=== PATIENT | female | born 1970 | race Caucasian/White ===

== ENCOUNTER 2017-11-23 03:51 | Emergency (ER) | payer BC ==
[2017-11-23] MEDS ORDERED: ALBUTEROL SULFATE 2.5 MG/0.5 ML VIAL.NEB IH ONE ×2 (03:57→03:58)
[2017-11-23] MEDS ORDERED: METHYLPREDNISOLONE SOD SUCC/PF 125 MG/2 ML VIAL IM ONE (03:58)
[2017-11-23] MEDS ORDERED: diphenhydrAMINE HCL 50 MG/ML VIAL IV ONE (03:58)
[2017-11-23] MEDS ORDERED: METHYLPREDNISOLONE SOD SUCC/PF 125 MG/2 ML VIAL ONE (04:06)
[2017-11-23] MEDS ORDERED: METHYLPREDNISOLONE SOD SUCC/PF 125 MG/2 ML VIAL IV ONE (04:06)
[2017-11-23] MEDS ORDERED: diphenhydrAMINE HCL 50 MG/ML VIAL ONE (04:06)
--- NOTE | 2017-11-23 04:08 | ERNOTE ---
Dizziness ER Record Presenting Symptoms: weakness, near-fainting Time Seen by Provider: 11/23/17 03:51 Source: patient Exam Limitations: no limitations Allergies/Adverse Reactions: Allergies Allergy/AdvReac Type Severity Reaction Status Date / Time No Known Allergies Allergy Unverified 11/23/17 04:04 Home Medications: HOME MEDICATIONS Albuterol Sulfate [Proair Hfa] 1 - 2 puff IH Q4H PRN 11/23/17 [Last Taken Unknown] Mometasone/Formoterol [Dulera 100 Mcg/5 Mcg Inhaler] 2 puff IH BID 11/23/17 [ Last Taken Unknown] - History of Present Illness Narrative: Pt states she had a headache at work, she took a couple 81 mg ASA. a few minutes later she began to feel faint, she went into the bathroom then began to feel nauseous and vomited. She went into the nurses station and was very lethargic / near -syncopal. Timing and Duration: sudden onset Severity: max: moderate Severity: currently: moderate Associated Symptoms: Present: vomiting Sense of movement: Present: vague Fainted/near fainted while:: Present: standing Decreased ability to stand/walk:: Present: weak, off balance Review of Systems - Review of Systems Constitutional: Absent: recent illness, fever, chills EYE: Present: other - tunnel vision for a short time ENT: Absent: nose congestion, nasal drainage Respiratory: Present: shortness of breath, wheezing Cardiology: Present: chest pain - pressure, palpitations Gastrointestinal/Abdominal: Present: nausea, vomiting. Absent: diarrhea, abdominal pain Genitourinary: Absent: frequency, pain, dysuria Musculoskeletal: Absent: muscle pain, joint pain, joint swelling Skin: Absent: rash Neurological: Present: headache - top of head and behind left eye Endocrine: Absent: excessive sweating, flushing Hematologic/Lymphatic: Present: no symptoms reported Psych: Present: no symptoms reported - Patient's Past Medical History Patient History - Cardiac/Respiratory: COPD Physical Exam - Physical Exam General Appearance: Present: wd/wn, alert, mild distress Head Exam: Present: normal inspection, no evidence of injury Ears, Nose, Throat: Present: normal ENT inspection Neck: Present: normal inspection, nontender Respiratory: Present: no respiratory distress, no accessory muscle use, wheezing - occasional expiratory Cardiovascular/Chest: Present: regular rate, rhythm, no murmur, normal peripheral pulses Gastrointestinal/Abdominal: Present: normal bowel sounds, nontender, nondistended, soft Back Exam: Present: normal inspection, normal range of motion, no vertebral tenderness Extremity Exam: Present: normal inspection, normal range of motion, no edema Neurological Exam: Present: alert, oriented, no motor/sensory deficits Skin Exam: Present: normal color, warm/dry Lymphatic Exam: Present: no adenopathy ED Progress - Results and Orders Patient's Lab Results:: I have reviewed the patient's lab results. Results and Orders: Laboratory Tests 11/23/17 11/23/17 11/23/17 03:59 03:59 04:35 WBC 10.2 Hgb 13.1 Hct 38.0 Plt Count 274 Neutrophils % 77.1 H Sodium 142 Potassium 3.7 Chloride 108 H Carbon Dioxide 24.2 Anion Gap 13.5 BUN 8 Creatinine 0.88 Est GFR (Non-Af Amer) 74 Random Glucose 114 H Calcium 8.6 Total Bilirubin 0.2 AST 14 ALT 24 Alkaline Phosphatase 77 Troponin I Less than 0.017 Total Protein 7.2 Albumin 3.7 Urine Color Pale yellow Urine Appearance Clear Urine pH 6.0 Ur Specific [place] <=1.005 Urine Protein Negative Urine Glucose (UA) Negative Urine Ketones Negative Urine Blood Negative Urine Nitrate Negative Urine Bilirubin Negative Urine Urobilinogen Normal Ur Leukocyte Esterase Negative Urine RBC 0-5 Urine WBC 0-5 Ur Epithelial Cells 0-5 Urine Bacteria None seen Urine Culture Comments No culture indicated Urine Opiates Screen Barbiturate Screen Ur Phencyclidine Scrn Urine Amphetamine U Benzodiazepines Scrn Urine Cocaine Screen Urine Marijuana (THC) 11/23/17 04:35 WBC Hgb Hct Plt Count Neutrophils % Sodium Potassium Chloride Carbon Dioxide Anion Gap BUN Creatinine Est GFR (Non-Af Amer) Random Glucose Calcium Total Bilirubin AST ALT Alkaline Phosphatase Troponin I Total Protein Albumin Urine Color Urine Appearance Urine pH Ur Specific [place] Urine Protein Urine Glucose (UA) Urine Ketones Urine Blood Urine Nitrate Urine Bilirubin Urine Urobilinogen Ur Leukocyte Esterase Urine RBC Urine WBC Ur Epithelial Cells Urine Bacteria Urine Culture Comments Urine Opiates Screen Negative Barbiturate Screen Negative Ur Phencyclidine Scrn Negative Urine Amphetamine Negative U Benzodiazepines Scrn Negative Urine Cocaine Screen Negative Urine Marijuana (THC) Negative - Vital Signs Patient's Vital Signs:: I have reviewed the patient's vital signs. - EKG EKG: NSR EKG read: Interp. by me - X-Ray X-Ray #1 X-Ray: chest Interpretation: Interp. by me X-ray Comments: No infiltrate or effusion, no pneumothorax or rib fractures. Heart shadow appears normal - Progress/Reassessment Progress:: Improved Departure Clinical Impression: Near syncope - Departure Disposition: Home self-care Condition: Good Instructions: Near-Syncope, [id number] Additional Instructions: rest today. Drink plenty of fluids. See your regular doctor if you continue to have symptoms. Return to the ER as needed.
[2017-11-23 04:12] LABS: Hemoglobin 13.1 gm/dL (12.5-16.0); Mean Cell Volume 87.4 fl (78-100); Mean Corpuscular Hemoglobin 30.1 pg (27-31); Mean Corpuscular Hgb Conc 34.5 g/dl (32-36); Mean Platelet Volume 8.4 fl (6.0-9.5); Neutrophil # 7.9 K/mm3 (1.3-6.0); Neutrophil % 77.1 % (42-75.0); Platelet Count 274 K/mm3 (150-450); Red Blood Count 4.35 M/mm3 (4.2-5.4); Red Cell Distribution Width 12.7 % (11.5-14.0); White Blood Count 10.2 K/mm3 (4.0-10.5)
[2017-11-23 04:34] LABS: ALT 24 U/L (19-67); AST 14 U/L (0-48); Albumin * 3.7 gm/dl (3.4-5.0); Alkaline Phosphatase * 77 U/L (50-170); Anion Gap 13.5 mmol/L (6.8-13.8); BUN/Creatinine Ratio 9.1 (9.0-21.6); Bilirubin, Total 0.2 mg/dL (0.0-1.1); Blood Urea Nitrogen 8 mg/dL (3-23); Ca. Corrected For Albumin 8.5 mg/dL (8.4-10.2); Calcium * 8.6 mg/dL (7.9-10.9); Carbon Dioxide 24.2 mmol/L (24-32.6); Chloride 108 mmol/L (97-106); Glucose * 114 mg/dL (70-110); Potassium 3.7 mmol/L (3.4-4.6); Sodium 142 mmol/L (132-142); Total Protein 7.2 gm/dL (6.2-8.2); Troponin I Less than 0.017 ng/ml (0.00-0.10)
[2017-11-23 04:40] LABS: Urine Bilirubin Negative (NEGATIVE); Urine Ketone Negative (NEGATIVE); Urine Nitrite Negative (NEGATIVE); Urine Protein Negative (NEGATIVE); Urine Specific Gravity <=1.005 SP.GR. (1.005-1.010); Urine Urobilinogen Normal (NORMAL)
[2017-11-23 04:41] LABS: Urine Appearance Clear; Urine Blood Negative /ul (NEGATIVE); Urine Color Pale Yellow
[2017-11-23 04:42] LABS: Urine Bacteria None Seen; Urine RBC 0-5 /hpf (0-5); Urine WBC 0-5 /hpf (0-5)
[2017-11-23 04:57] LABS: Cocaine Ur Negative (NEGATIVE); Urine Barbiturate Negative (NEGATIVE); Urine Benzodiazepines Negative (NEGATIVE); Urine Opiates Negative (NEGATIVE); Urine PCP Negative (NEGATIVE); Urine THC Negative (NEGATIVE)
[2017-11-23 06:21] VITALS: BP 108/74
== END 2017-11-23 06:33 | disposition home or self-care (01) ==
LOC: ER 03:51
DX: R55 Syncope and collapse (principal); R11.2 Nausea with vomiting, unspecified; Z68.30 Body mass index [BMI] 30.0-30.9, adult